=== PATIENT | female | born 1995 | race Caucasian/White ===

== ENCOUNTER 2016-10-14 20:32 | Inpatient (IN) | payer MEDICAID, OTHER ==
[2016-10-14] VITALS (7 sets, daily range): BP systolic 108–135; BP diastolic 57–78
[~2016-10-14] VITALS: Ht 160 cm; Wt 86.3 kg
[~2016-10-14 20:32] MED LIST: D5 LR IV SOLUTION 1,000 ML IV ONE
[2016-10-14] MEDS ORDERED: MISOPROSTOL 100 MCG (CYTOTEC) TAB PO ONE (20:45)
[2016-10-14] MEDS ORDERED: MINERAL OIL CONCENTRATE 99.9% 15 ML UDC TOP PRN (20:45)
[2016-10-14] MEDS ORDERED: ONDANSETRON 4 MG/2 ML (SDV) Z0FRAN IVP PRN (20:45)
[2016-10-14] MEDS: LACTATED RINGERS 500 ML IV SCH ×2 (21:05→22:00)
[2016-10-14 21:07] LABS: BASOPHILS % (AUTO) 0 % (0-10); EOSINOPHILS % (AUTO) 0 % (0-10); LYMPHOCYTES # (AUTO) 2.2 X 10^3 (1.0-4.0); LYMPHOCYTES % (AUTO) 18 % (12-44); MEAN CORPUSCULAR HEMOGLOBIN 31 PG (25-34); MEAN CORPUSCULAR HGB CONC 32 G/DL (32-36); MEAN CORPUSCULAR VOLUME 95 FL (80-99); MEAN PLATELET VOLUME 10.6 FL (7.4-10.4); MONOCYTES # (AUTO) 0.6 X 10^3 (0.0-1.0); MONOCYTES % (AUTO) 5 % (0-12); NEUTROPHILS # (AUTO) 9.3 X 10^3 (1.8-7.8); NEUTROPHILS % (AUTO) 77 % (42-75); PLATELET COUNT 164 10^3/uL (130-400); RED BLOOD COUNT 3.72 10^6/uL (4.35-5.85); WHITE BLOOD COUNT 12.1 10^3/uL (4.3-11.0)
[2016-10-14 21:10] LABS: BILIRUBIN,URINE NEGATIVE (NEGATIVE); KETONES,URINE 3+ (NEGATIVE); LEUKOCYTE ESTERASE ,URINE 2+ (NEGATIVE); NITRITE,URINE NEGATIVE (NEGATIVE); PH,URINE 6 (5-9); PROTEIN,URINE 1+ (NEGATIVE); UROBILINOGEN,URINE NORMAL (NORMAL)
[2016-10-14 21:21] LABS: SQUAMOUS EPITHELIAL CELL,UR >50 /HPF; WBC,URINE 25-50 /HPF
[2016-10-14] MEDS: D5 LR IV SOLUTION 1,000 ML IV SCH (21:33)
[2016-10-14] MEDS ORDERED: CATHETER FLUSH 10 ML SYR IV SCH (22:00)
[2016-10-15] VITALS (43 sets, daily range): BP systolic 94–148; BP diastolic 46–79
[2016-10-15] MEDS ORDERED: HYDROmorphone (DILAUDID) 2 MG/ML VIAL ONE (01:34)
[2016-10-15] MEDS: MISOPROSTOL 100 MCG (CYTOTEC) TAB PO SCH ×2 (01:41→04:45)
[2016-10-15] MEDS ORDERED: HYDROmorphone (DILAUDID) 2 MG/ML VIAL IVP PRN (01:45)
[2016-10-15] MEDS ORDERED: LACTATED RINGERS 500 ML IV ONE (02:50)
[2016-10-15] MEDS ORDERED: SUFENTA 0.6MCG/ML BUPIVA 0.125 100 ML ONE (04:09)
[2016-10-15] MEDS: D5 LR IV SOLUTION 1,000 ML IV SCH (04:31)
[2016-10-15] MEDS ORDERED: fentaNYL INJECTION 100 MCG/2 ML AMP ONE (04:59)
[2016-10-15] MEDS ORDERED: CLINDAMYCIN 900 MG/50 ML IVPB 50 ML IV ONE (06:00)
--- NOTE | 2016-10-15 06:59 | History & Physical-OB ---
OB - Chief Complaint & HPI Date Date of Admission: Date of Admission: Oct 14, 2016 at 8:32 pm Chief Complaint/History OB-Reason for Admission/Chief: Induction of Labor Hx : 4 Hx Para: 1 Expected Date of Delivery: Oct 22, 2016 Gestational Age in Weeks: 38 Indication for induction: other (Elective/social >39 weeks) Admission Nurse Assessment Rev: Yes History of Labs A neg Antibody neg RI RPR NR HBsAg NR HIV NR GC neg GBS pos Allergies and Home Medications Allergies Coded Allergies: acetaminophen (Verified Allergy, Severe, ANAPHYLAXIS, 10/14/16) hydrocodone (Verified Allergy, Severe, ANAPHYLAXIS, 10/14/16) Penicillins (Verified Allergy, Intermediate, HIVES, 10/14/16) OB - History Hx of Present Care: Yes Ultrasounds: Normal mid trimester US Obstetrical Complications: None Medical Complications: None Delivery History Adverse Rxn to Tranfusion: No Patient Past Medical History none Social History/Family History Recent Infectious Disease Expo: No Sexually Transmitted Disease: Yes (hpv on pap) Alcohol Use: Denies Use Recreational Drug Use: No Immunizations Date of Influenza Vaccine: Apr 30, 2016 OB - Admission Exam Physical Exam Vitals: Vital Signs 10/15/16 10/15/16 05:30 06:10 Temp 98.4 Pulse 86 Resp 16 B/P (MAP) 96/50 Pulse Ox 97 O2 Delivery Room Air HEENT: NCAT Heart: Rhythm Normal Lungs: Clear Abdomen: Gravid Extremities: Normal Reflexes: Normal Cervical Dilatation: 2cm Effacement: 75% Station: -1 Membranes: Intact Heart Rate: 130's Accelerations: Accelerations Present Decelerations: No Decelerations Short Term Variability: Present Sewer And Inspector Variability: Average (6-25) Contractions on Admission: 6-10 Minutes Apart Intensity: Mild Truong Scoring Tool (Modified) Dilation (cm): 3-4cm (2) Effacement (%): 51-79% (2) Descent/Station: -1,0 (2) Cervix Consistency: Soft (2) Cervix Position: Anterior (2) Add 1 point for: Each previous vaginal delivery (1) Truong Score: 11 Labs Laboratory Tests Test 10/14/16 20:00 10/14/16 20:15 Range/Units Urine Color YELLOW Urine Clarity VERY CLOUDY H Urine pH 6 5-9 Urine Specific [place] 1.020 1.016-1.022 Urine Protein 1+ H NEGATIVE Urine Glucose (UA) 2+ H NEGATIVE Urine Ketones 3+ H NEGATIVE Urine Nitrite NEGATIVE NEGATIVE Urine Bilirubin NEGATIVE NEGATIVE Urine Urobilinogen NORMAL NORMAL MG/DL Urine Leukocyte Esterase 2+ H NEGATIVE Urine RBC (Auto) NEGATIVE NEGATIVE Urine RBC NONE /HPF Urine WBC 25-50 H /HPF Urine Squamous Epithelial Cells >50 H /HPF Urine Crystals NONE /LPF Urine Bacteria LARGE H /HPF Urine Casts NONE /LPF Urine Mucus NEGATIVE /LPF Urine Culture Indicated YES White Blood Count 12.1 H 4.3-11.0 10^3/uL Red Blood Count 3.72 L 4.35-5.85 10^6/uL Hemoglobin 11.4 L 11.5-16.0 G/DL Hematocrit 36 35-52 % Mean Corpuscular Volume 95 80-99 FL Mean Corpuscular Hemoglobin 31 25-34 PG Mean Corpuscular Hemoglobin Concent 32 32-36 G/DL Red Cell Distribution Width 14.0 10.0-14.5 % Platelet Count 164 130-400 10^3/uL Mean Platelet Volume 10.6 H 7.4-10.4 FL Neutrophils (%) (Auto) 77 H 42-75 % Lymphocytes (%) (Auto) 18 12-44 % Monocytes (%) (Auto) 5 0-12 % Eosinophils (%) (Auto) 0 0-10 % Basophils (%) (Auto) 0 0-10 % Neutrophils # (Auto) 9.3 H 1.8-7.8 X 10^3 Lymphocytes # (Auto) 2.2 1.0-4.0 X 10^3 Monocytes # (Auto) 0.6 0.0-1.0 X 10^3 Eosinophils # (Auto) 0.0 0.0-0.3 10^3/uL Basophils # (Auto) 0.0 0.0-0.1 10^3/uL OB - Assessment/Plan/Diagnosis Assessment Assessment: induction of labor Plan Plan: Induction Induction Method: per Misoprostol Protocol Discharge Diagnosis Diagnosis: 21 yo @ 39 weeks GBS + VENKATESHSHERRI Horton Oct 15, 2016 6:59 am
[2016-10-15] MEDS ORDERED: OXYTOCIN/NORMAL SALINE 500 ML IV ONE (07:23)
[2016-10-15] MEDS ORDERED: LIDOCAINE/EPI 1%-1:200,000 (XYLOCAINE) 30 ML VIAL ONE (07:23)
[2016-10-15] MEDS ORDERED: LIDOCAINE/EPI 1%-1:200,000 (XYLOCAINE) 30 ML VIAL INJ ONE (08:10)
[2016-10-15] MEDS ORDERED: OXYTOCIN/NORMAL SALINE 500 ML IV SCH (08:36)
--- NOTE | 2016-10-15 08:41 | OB Labor & Delivery Record ---
L&D History Date of Service Date of Service: Oct 15, 2016 History Expected Date of Delivery: Oct 22, 2016 Gestational Age in Weeks: 38 Hx : 4 Hx Para: 1 Complications Events: Routine care Operative Indications (Cesarea: N/A-Vaginal Delivery Intrapartal Events: None L&D Stage1 Stage One Onset of Labor - Date: Oct 15, 2016 Monitors and Tracing Monitor Mode: External Heart Rate: 145 Monitor Accelerations: Uniform Monitor Decelerations: None Station: -1 Engineering And Scientific Programmer Variability: Moderate (11-25) Short Term Variability: Present Presentation: Vertex Vital Signs VS - Last 72 Hours, by Label 10/14/16 10/14/16 10/14/16 10/14/16 20:12 20:30 21:00 21:30 Temp 98.4 Pulse 127 103 117 113 Resp 18 18 18 18 B/P (MAP) 135/73 130/78 119/57 126/64 O2 Delivery Room Air Room Air Room Air Room Air 10/14/16 10/14/16 10/14/16 10/14/16 22:00 22:30 22:45 23:15 Pulse 77 97 Resp 18 18 18 18 B/P (MAP) 108/59 115/60 O2 Delivery Room Air Room Air Room Air Room Air 10/14/16 10/15/16 10/15/16 10/15/16 23:45 00:15 00:45 01:15 Temp 99.0 Pulse 90 96 91 81 Resp 18 16 16 16 B/P (MAP) 120/60 100/51 94/58 97/53 O2 Delivery Room Air Room Air Room Air Room Air 10/15/16 10/15/16 10/15/16 10/15/16 01:45 02:15 02:45 03:20 Temp 99.2 Pulse 87 86 75 75 Resp 16 16 16 16 B/P (MAP) 118/72 118/56 102/58 99/55 O2 Delivery Room Air Room Air Room Air Room Air 10/15/16 10/15/16 10/15/16 10/15/16 04:00 04:20 04:50 05:06 Temp 97.4 Pulse 85 83 90 92 Resp 18 18 18 18 B/P (MAP) 108/57 117/68 123/73 132/69 Pulse Ox 100 O2 Delivery Room Air Room Air Room Air Room Air 10/15/16 10/15/16 10/15/16 10/15/16 05:14 05:20 05:22 05:24 Pulse 104 98 85 108 Resp 18 18 20 20 B/P (MAP) 138/78 133/78 130/73 131/75 Pulse Ox 100 97 94 94 O2 Delivery Room Air Room Air Room Air Room Air 10/15/16 10/15/16 10/15/16 10/15/16 05:27 05:30 05:33 05:36 Temp 98.4 Pulse 97 116 108 121 Resp 18 18 18 18 B/P (MAP) 113/57 112/56 102/56 105/57 Pulse Ox 97 97 97 98 O2 Delivery Room Air Room Air Room Air Room Air 10/15/16 10/15/16 10/15/16 10/15/16 05:39 05:42 05:45 05:50 Pulse 90 85 92 94 Resp 18 16 16 16 B/P (MAP) 122/58 120/59 113/57 96/52 Pulse Ox 96 95 99 99 O2 Delivery Room Air Room Air Room Air Room Air 10/15/16 10/15/16 10/15/16 10/15/16 05:55 06:10 06:25 06:40 Pulse 77 86 81 76 Resp 16 16 16 16 B/P (MAP) 96/54 96/50 95/46 102/50 Pulse Ox 99 97 99 97 O2 Delivery Room Air Room Air Room Air Room Air 10/15/16 10/15/16 06:55 07:10 Pulse 108 85 Resp 16 16 B/P (MAP) 99/61 112/58 Pulse Ox 100 97 O2 Delivery Room Air Room Air Rupture of Membranes Spontaneous Ruture of Membrane: No Amniotic Membrane Rupture Time: 08:00 Amniotic Membrane Fluid Desc.: Clear Vaginal Bleeding Description: Normal Show Induction/Anesthesia Epidural Cath Placement - Time: 517 Progress/Notes Patient induced using cytotec and recieved 2 oral doses before active labor was achieved and epidural was obtained. She rapidly progressed to complete and +1 station intact, when AROM was performed. L&D Stage2 Stage Two Stage II Date: Oct 15, 2016 Monitors and Tracing Monitor Mode: External Heart Rate: 145 Monitor Accelerations: Uniform Monitor Decelerations: Early Engineering And Scientific Programmer Variability: Moderate (11-25) Short Term Variability: Present Position: Right Occiput Anterior Presentation: Vertex Cord Descript/Complications Cord Vessel Description: 3 Vessels Complications nuchal cord x 2 Delivery Type Delivery Method: Spontaneous Vaginal Anterior Shoulder: Left Episiotomy/Perineal Laceration Laceraction(s)/Extensions: Yes Episiotomy Description: Midline, Perineal Extension/lac, 1st degree Degree (describe repair) midline 1st degree laceration repaired using 3-0 rapide vicryl Condition of Delivery 1 minute Comment: 8 5 minute Comment: 9 Condition of Infant Condition of Infant: Living Exam: No Observed Abnormalities Live female infant weight 8lbs 8oz Resuscitation Resuscitation: N/A - Spontaneous Resp L&D Stage3 Stage Three Stage III Date: Oct 15, 2016 Pictocin Pitocin Administration Comment: 30 mu wide open after delivery of placenta Placenta Delivery Placenta Delivery: Spontaneous Delivery Summary Summary Total Labor Time 8 hrs blood loss >1000ml: No Vaginal blood loss >500ml: No 300 Attending at delivery: Sherri Riddle DO Condition of Delivery Examined: Cervix Examined, Uterus Explored Post Hemorrhage: No Condition of Mother stable Condition of Infant (s) stable SHERRI RIDDLE DO Oct 15, 2016 08:41
[2016-10-15] MEDS ORDERED: BENZOCAINE/MENTHOL (DERMOPLAST) 56 ML CAN TP PRN (08:45)
[2016-10-15] MEDS ORDERED: TETANUS,DIPTH,PERTUSS P/F (BOOSTRIX) 0.5 ML VIAL IM ONE (08:45)
[2016-10-15] MEDS ORDERED: WITCH HAZEL(TUCKS) 40 EA JAR TOP PRN (08:45)
[2016-10-15] MEDS ORDERED: MEASLES,MUMPS,RUBELLA 1 EA INJ SQ ONE (08:45)
[2016-10-15] MEDS ORDERED: DIBUCAINE (NUPERCAINAL) 1% OINT 30 GM TOP PRN (08:45)
[2016-10-15] MEDS: IBUPROFEN 600 MG (MOTRIN) TAB PO SCH ×3 (08:50→20:58)
[2016-10-15] MEDS: DOCUSATE SODIUM 100 MG (COLACE) CAP PO SCH ×2 (09:00→20:58)
[2016-10-15] MEDS ORDERED: CLINDAMYCIN 600 MG/50 ML IVPB 50 ML IV SCH (09:45)
[2016-10-15] MEDS ORDERED: CATHETER FLUSH 10 ML SYR IV SCH (14:00)
[2016-10-15] MEDS: oxyCODONE/APAP 10/325MG (PERCOCET 10) TABLET PO PRN (23:37)
[2016-10-16] VITALS (7 sets, daily range): BP systolic 101–123; BP diastolic 56–75
[2016-10-16] MEDS: IBUPROFEN 600 MG (MOTRIN) TAB PO SCH ×4 (03:13→18:15)
[2016-10-16 06:36] LABS: BASOPHILS % (AUTO) 0 % (0-10); EOSINOPHILS # (AUTO) 0.1 10^3/uL (0.0-0.3); EOSINOPHILS % (AUTO) 1 % (0-10); LYMPHOCYTES # (AUTO) 3.2 X 10^3 (1.0-4.0); LYMPHOCYTES % (AUTO) 32 % (12-44); MEAN CORPUSCULAR HEMOGLOBIN 30 PG (25-34); MEAN CORPUSCULAR HGB CONC 31 G/DL (32-36); MEAN CORPUSCULAR VOLUME 97 FL (80-99); MEAN PLATELET VOLUME 10.3 FL (7.4-10.4); MONOCYTES # (AUTO) 0.8 X 10^3 (0.0-1.0); MONOCYTES % (AUTO) 8 % (0-12); NEUTROPHILS # (AUTO) 5.7 X 10^3 (1.8-7.8); NEUTROPHILS % (AUTO) 59 % (42-75); PLATELET COUNT 158 10^3/uL (130-400); RED BLOOD COUNT 2.88 10^6/uL (4.35-5.85); RED CELL DISTRIBUTION WIDTH 13.9 % (10.0-14.5); WHITE BLOOD COUNT 9.8 10^3/uL (4.3-11.0)
[2016-10-16] MEDS ORDERED: FERR-74 PO (08:36)
[2016-10-16] MEDS ORDERED: OXYC-465 PO (08:36)
[2016-10-16] MEDS ORDERED: BENZ56AE2 TP (08:36)
[2016-10-16] MEDS ORDERED: IBUP-1773 PO (08:36)
[2016-10-16] MEDS ORDERED: DOCU100C37 PO (08:36)
[2016-10-16] MEDS ORDERED: FERROUS SULF 325 MG (IRON) TAB PO ONE (08:45)
[2016-10-16] MEDS: FERROUS SULF 325 MG (IRON) TAB PO SCH ×2 (08:48→17:00)
[2016-10-16] MEDS: DOCUSATE SODIUM 100 MG (COLACE) CAP PO SCH ×2 (08:48→19:55)
--- NOTE | 2016-10-16 10:13 | Progress Note-Standard ---
Standard Progress Note Progress Notes/Assess & Plan Progress/Assessment & Plan Patient reports feeling slightly lightheaded when ambulating last night, but otherwise is doing well. Lochia moderate. Pain well controlled. Vital Sign - Last 24 Hours 10/15/16 10/15/16 10/15/16 10/16/16 11:55 16:29 20:00 00:00 Temp 96.6 96.4 98.2 97.6 Pulse 82 75 84 75 Resp 16 16 16 16 B/P (MAP) 105/61 113/65 121/61 106/56 Pulse Ox 97 98 100 O2 Delivery Room Air Room Air Room Air Room Air 10/16/16 10/16/16 04:00 08:45 Temp 98.1 97.5 Pulse 90 83 Resp 16 18 B/P (MAP) 101/64 119/60 Pulse Ox 99 100 O2 Delivery Room Air Room Air Intake and Output 10/15/16 10/15/16 10/16/16 15:00 23:00 07:00 Intake Total 1100 ml Output Total 250 ml Balance 850 ml Laboratory Tests Test 10/16/16 06:00 Range/Units White Blood Count 9.8 4.3-11.0 10^3/uL Red Blood Count 2.88 L 4.35-5.85 10^6/uL Hemoglobin 8.7 #L 11.5-16.0 G/DL Hematocrit 28 L 35-52 % Mean Corpuscular Volume 97 80-99 FL Mean Corpuscular Hemoglobin 30 25-34 PG Mean Corpuscular Hemoglobin Concent 31 L 32-36 G/DL Red Cell Distribution Width 13.9 10.0-14.5 % Platelet Count 158 130-400 10^3/uL Mean Platelet Volume 10.3 7.4-10.4 FL Neutrophils (%) (Auto) 59 42-75 % Lymphocytes (%) (Auto) 32 12-44 % Monocytes (%) (Auto) 8 0-12 % Eosinophils (%) (Auto) 1 0-10 % Basophils (%) (Auto) 0 0-10 % Neutrophils # (Auto) 5.7 1.8-7.8 X 10^3 Lymphocytes # (Auto) 3.2 1.0-4.0 X 10^3 Monocytes # (Auto) 0.8 0.0-1.0 X 10^3 Eosinophils # (Auto) 0.1 0.0-0.3 10^3/uL Basophils # (Auto) 0.0 0.0-0.1 10^3/uL Uterine fundus firm and palpated below umbilicus Diagnosis: PPD1 NVD Acute blood loss anemia P: Started patient on iron today bid with meal continue routine pp care SHERRI RIDDLE DO Oct 16, 2016 10:13 am
[2016-10-16] MEDS: oxyCODONE/APAP 10/325MG (PERCOCET 10) TABLET PO PRN ×2 (10:14→19:54)
--- NOTE | 2016-10-16 10:16 | Discharge Inst-Women's Service ---
Discharge Inst-Women's Serv Depart Medication/Instructions New, Converted or Re-Newed RX: RX on Chart Consults/Follow Up Additional Follow Up: Yes Orders/Referrals Dr. Riddle in 6 weeks Activity Activity: Activity as Tolerated Driving Instructions: No Driving for 1 Week NO SMOKING: NO SMOKING Nothing Inside Vagina: No Douching, No [place], No Tampons Diet Discharge Diet: No Restrictions Symptoms to Report to : Bleeding Excessive, Pain Increased, Fever Over 101 Degrees F, Vaginal Bleeding Increase, Questions/Concerns For Any Problems or Questions: Contact Your Physician Skin/Wound Care Bathing Instructions: Shower ( x 2 weeks) SHERRI RIDDLE DO Oct 16, 2016 10:16 am
[2016-10-16] MEDS ORDERED: ONDANSETRON 4 MG (ZOFRAN) ORAL DISSOLVE TAB ONE (10:36)
[2016-10-16] MEDS ORDERED: ONDANSETRON 4 MG (ZOFRAN) ORAL DISSOLVE TAB PO PRN (10:45)
--- NOTE | 2016-10-16 13:36 | Anesthesia-Regional Post-Op ---
Regional Patient Condition Mental Status: Alert, Oriented x3 Circulation: Same as Pre-Op Headache: Absent Sensation: Full Recovery Motor Block: Absent Post Op Complications Complications None Follow Up Care/Instructions Patient Instructions None needed. Anesthesia/Patient Condition Patient is doing well, no complaints, stable vital signs, no apparent adverse anesthesia problems. No complications reported per nursing. MAHOGANY HI CRNA Oct 16, 2016 13:36
--- NOTE | 2016-10-16 19:45 | Diagnostic Imaging Report ---
PROCEDURE: US right lower extremity venous. TECHNIQUE: Multiple real-time grayscale images were obtained over the right lower extremity in various projections. Additional duplex Doppler and color Doppler images were also obtained. INDICATION: Right leg pain. FINDINGS: The veins are compressible and have normal spontaneous and augmented flow. IMPRESSION: Negative venous Doppler of the right leg. Dictated by: Dictated on workstation # [id number]
[2016-10-17] MEDS: IBUPROFEN 600 MG (MOTRIN) TAB PO SCH ×3 (00:03→12:31)
--- NOTE | 2016-10-17 07:52 | Progress Note-Standard ---
Standard Progress Note Progress Notes/Assess & Plan Progress/Assessment & Plan Patient reports feeling like she is doing well. Lochia moderate. Pain well controlled. Vital Sign - Last 24 Hours 10/16/16 10/16/16 10/16/16 10/16/16 08:45 12:02 18:18 19:35 Temp 97.5 96.5 95.1 97.0 Pulse 83 80 82 95 Resp 18 18 18 18 B/P (MAP) 119/60 116/75 123/72 123/69 Pulse Ox 100 99 99 97 O2 Delivery Room Air Room Air 10/16/16 23:25 Temp 98.0 Pulse 77 Resp 18 B/P (MAP) 112/65 Pulse Ox 97 O2 Delivery Room Air Uterine fundus firm and palpated below umbilicus Diagnosis: PPD2 NVD Acute blood loss anemia P: Started patient on iron today bid with meal switched to niferex continue routine pp care, dc today SHERRI RIDDLE DO Oct 17, 2016 7:52 am
[2016-10-17] MEDS: DOCUSATE SODIUM 100 MG (COLACE) CAP PO SCH (08:39)
[2016-10-17] MEDS: oxyCODONE/APAP 10/325MG (PERCOCET 10) TABLET PO PRN ×2 (08:40→13:45)
[2016-10-17 09:00] VITALS: BP 114/64
[2016-10-17] MEDS ORDERED: IRON POLYSAC 150 MG CAP (NIFEREX) PO ONE (09:05)
[2016-10-17 12:30] VITALS: BP 113/67
[2016-10-17] MEDS ORDERED: IRON150C3 PO (13:17)
[2016-10-17 13:30] VITALS: BP 113/67
[2016-10-17] MEDS ORDERED: IRON POLYSAC 150 MG CAP (NIFEREX) PO SCH (17:00)
== END 2016-10-17 14:50 | disposition home or self-care (01) | DRG 775 ==
LOC: LDRP 20:32
PROVIDERS: ADMIT Obstetrics & Gynecology; ATTEND Obstetrics & Gynecology
PROC: 10E0XZZ Delivery of Products of Conception, External Approach (ICD-10-PCS; principal; 2016-10-15)
PROC: 0HQ9XZZ Repair Perineum Skin, External Approach (ICD-10-PCS; 2016-10-15)
DX: O26.893 Other specified pregnancy related conditions, third trimester (principal); O99.820 Streptococcus B carrier state complicating pregnancy; O70.0 First degree perineal laceration during delivery; O99.03 Anemia complicating the puerperium; D64.9 Anemia, unspecified; Z3A.39 39 weeks gestation of pregnancy; Z37.0 Single live birth
CPT/HCPCS: 36415; 81000; 83033; 85025; 86850; 86900; 86901; 87088

== ENCOUNTER 2020-01-27 06:11 | Day surgery (SDC) | payer MEDICAID ==
[~2020-01-27] VITALS: Ht 160 cm; Wt 80.9 kg
[2020-01-27] VITALS (9 sets, daily range): BP systolic 104–124; BP diastolic 55–80
[~2020-01-27 06:11] MED LIST changes: +BENZ56AE2 TP; -D5 LR IV SOLUTION 1,000 ML IV ONE; +DOCU100C37 PO; +FERR325T18 PO; +IBUP-1773 PO; +IRON150C3 PO; +OXYC-465 PO
[2020-01-27] MEDS ORDERED: LACTATED RINGERS 1,000 ML IV PRN ×2 (06:20→07:15)
[2020-01-27] MEDS ORDERED: ONDANSETRON 4 MG/2 ML (SDV) Z0FRAN ONE ×2 (06:43→06:49)
[2020-01-27] MEDS ORDERED: MIDAZOLAM 2 MG/2 ML (VERSED) VIAL ONE ×2 (06:43→06:48)
[2020-01-27] MEDS ORDERED: proPOfol 200 MG/20 ML (DIPRIVAN) VIAL IV ONE (06:49)
[2020-01-27] MEDS ORDERED: fentaNYL INJECTION 100 MCG/2 ML AMP ONE (06:49)
[2020-01-27] MEDS ORDERED: LIDOCAINE PF 2% 5 ML (XYLOCAINE) VIAL ONE (06:49)
[2020-01-27 06:51] LABS: BASOPHILS % (AUTO) 0 % (0-10); EOSINOPHILS # (AUTO) 0.1 10^3/uL (0.0-0.3); EOSINOPHILS % (AUTO) 1 % (0-10); HEMATOCRIT 40 % (35-52); HEMOGLOBIN 13.5 G/DL (11.5-16.0); LYMPHOCYTES # (AUTO) 1.8 X 10^3 (1.0-4.0); LYMPHOCYTES % (AUTO) 24 % (12-44); MEAN CORPUSCULAR HEMOGLOBIN 31 PG (25-34); MEAN CORPUSCULAR HGB CONC 34 G/DL (32-36); MEAN CORPUSCULAR VOLUME 93 FL (80-99); MEAN PLATELET VOLUME 9.7 FL (7.4-10.4); MONOCYTES # (AUTO) 0.6 X 10^3 (0.0-1.0); MONOCYTES % (AUTO) 8 % (0-12); NEUTROPHILS # (AUTO) 5.1 X 10^3 (1.8-7.8); NEUTROPHILS % (AUTO) 67 % (42-75); PLATELET COUNT 193 10^3/uL (130-400); RED CELL DISTRIBUTION WIDTH 12.8 % (10.0-14.5); WHITE BLOOD COUNT 7.5 10^3/uL (4.3-11.0)
[2020-01-27] MEDS ORDERED: OXYC-200 PO (07:05)
[2020-01-27] MEDS ORDERED: IBUP-1773 PO (07:05)
--- NOTE | 2020-01-27 07:06 | Discharge Inst-Women's Service ---
Discharge Inst-Women's Serv Depart Medication/Instructions New, Converted or Re-Newed RX: RX on Chart Problems Reviewed?: Yes Consults/Follow Up Additional Follow Up: Yes Orders/Referrals Dr. Riddle in 7-10 days Activity Activity: Activity as Tolerated Driving Instructions: You May Drive NO SMOKING: NO SMOKING Nothing Inside Vagina: No Douching, No Cactus, No Tampons Diet Discharge Diet: No Restrictions Symptoms to Report to : Bleeding Excessive, Pain Increased, Fever Over 101 Degrees F, Vaginal Bleeding Increase, Questions/Concerns SHERRI RIDDLE DO Jan 27, 2020 07:06
[2020-01-27] MEDS ORDERED: D5 LR IV SOLUTION 1,000 ML IV SCH (07:08)
[2020-01-27] MEDS ORDERED: KETOROLAC 30 MG/ML VIAL IVP ONE (07:15)
[2020-01-27] MEDS ORDERED: ONDANSETRON 4 MG/2 ML (SDV) Z0FRAN IV ONE (07:15)
[2020-01-27] MEDS ORDERED: ONDANSETRON 4 MG/2 ML (SDV) Z0FRAN IVP PRN (07:15)
[2020-01-27] MEDS ORDERED: MIDAZOLAM 2 MG/2 ML (VERSED) VIAL IV ONE (07:15)
[2020-01-27] MEDS ORDERED: DEXAMETHASONE 10 MG/ML (DECADRON) 1 ML VIAL ONE (07:32)
[2020-01-27] MEDS ORDERED: SEVOFLURANE (ULTANE) 15 ML INHAL SOLN ONE (07:32)
[2020-01-27] MEDS ORDERED: KETOROLAC 30 MG/ML VIAL ONE (08:03)
--- NOTE | 2020-01-27 08:46 | Anesthesia-General Post-Op ---
General Patient Condition Mental Status/LOC: Same as Preop Cardiovascular: Satisfactory Nausea/Vomiting: Absent Respiratory: Satisfactory Pain: Controlled Complications: Absent Post Op Complications Complications None Follow Up Care/Instructions Patient Instructions None needed. Anesthesia/Patient Condition Patient Condition Patient is doing well, no complaints, stable vital signs, no apparent adverse anesthesia problems. No complications reported per nursing. GINNY PETERSON CRNA Jan 27, 2020 08:46
--- NOTE | 2020-01-27 09:13 | OPERATIVE REPORT ---
DATE OF SERVICE: PREOPERATIVE DIAGNOSIS: A 24-year-old female with missed AB approximately 6 weeks gestation. POSTOPERATIVE DIAGNOSIS: A 24-year-old female with missed AB approximately 6 weeks gestation. PROCEDURE: Suction D and C. SURGEON: Nilo Morley DO ANESTHESIA: LMA general. ESTIMATED BLOOD LOSS: 200 mL. URINE OUTPUT: 50 mL clear at the end of procedure. FLUIDS: 500 mL lactated Ringer's solution. FINDINGS: A grossly normal external female genitalia with a moderate amount of products of conception. SPECIMEN SENT: Products of conception. INDICATIONS FOR PROCEDURE: This 24-year-old female is a patient who had sought care in my office. Her initial ultrasound revealed a gestational sac with a small pole measuring approximately 5 to 6 weeks in gestational size. There was irregular elevation in her beta hCG level; therefore, followup ultrasound done in 2 weeks. There was no cardiac activity noted at that point and no change in the size. Due to this finding as well as the hCG levels not raising appropriately, I did diagnose the patient with a missed AB. I discussed with the patient spontaneous miscarriage at home versus proceeding with suction D and C. Risks of procedure were discussed with the patient in detail including risk of bleeding and postoperative recovery timeframe. Due to a traumatic experience in the past, the patient wished to proceed with suction D and C. Consent was obtained in the preoperative area after all of her questions were answered and the patient was taken to the operating room. OPERATIVE REPORT IN DETAIL: Once in the operating room, anesthesia was found to be adequate, placed in dorsal lithotomy position, prepped and draped in normal sterile fashion. Straight catheterization was used to drain the bladder. A weighted speculum was inserted to the patient's vagina. Right angle retractor was used to visualize the cervix, which was grasped at 12 oclock position using a long Allis clamp. I then gently dilated the cervix using Hanks dilators and sound the uterine cavity depth to approximately 7 cm. I selected a 7 cm rigid suction curette and advanced it into the endometrial cavity. I applied [place] suction up to a suction pressure of 70 mmHg. I then methodically cleared the endometrial cavity of all products of conception on several different passes by rotating the suction device. Once this was felt to be complete, I performed a gentle curettage of the endometrial cavity. There was no heavy active bleeding noted at that point, I removed all other instruments from the patient's vagina. The patient tolerated the procedure well and sent to recovery in stable condition. Lap and sponge counts were correct at the end of the procedure. Instrument counts correct as well. Job ID: [id number] DocumentID: [id number] Dictated Date: 01/27/2020 08:44:23 Pulp Grinder And Blender Date: 01/27/2020 09:12:49 Dictated By: DO CLAUDE BOUCHER
== END 2020-01-27 09:35 | disposition home or self-care (01) ==
LOC: SDC 06:11
PROVIDERS: ATTEND Obstetrics & Gynecology
DX: O02.1 Missed abortion (principal); Z88.0 Allergy status to penicillin; Z88.5 Allergy status to narcotic agent; Z20.828 Contact with and (suspected) exposure to other viral communicable diseases; Z80.3 Family history of malignant neoplasm of breast; Z80.1 Family history of malignant neoplasm of trachea, bronchus and lung; Z80.41 Family history of malignant neoplasm of ovary
CPT/HCPCS: 59820; 85025; 86850; 86900; 86901; 87081; 88305; U0002; 36415; 87635

== ENCOUNTER → 2020-08-30 | Outpatient (CLI) | payer MEDICAID ==
[~2020-08-30] MED LIST changes: +OXYC-200 PO; -OXYC-465 PO; +OXYC-556 PO
--- NOTE | 2020-08-30 16:03 | Diagnostic Imaging Report ---
INDICATION: survey. TECHNIQUE: Multiple real-time grayscale images were obtained over the gravid uterus. COMPARISON: None FINDINGS: There are no prior studies available for comparison. There is a single live fetus in transverse presentation with the head to maternal left. heart motion was noted and a rate of 139 BPM was recorded. The four-chamber heart view was less than optimal. There is no abnormality identified but it may prove worthwhile to have a short-term (4-6 week) follow-up exam for further study. There is no abnormality identified otherwise. The growth parameters are fairly uniform. The placenta is posterior and low-lying. The tip of the placenta is approximately 1.9 cm from the os. The amniotic fluid volume is within normal limits. The cervix was identified and measures 6.3 cm in length Biometrical measurements are as follows: Biparietal 4.50 cm, age 19 weeks 5 days. Head circumference 17.45 cm, age 20 weeks 0 days. Abdominal circumference 14.62 cm, age 20 weeks 0 days. Femur length 3.34 cm, age 20 weeks 4 days. Sonographic estimate age: 20 weeks 1 days. Sonographic estimated date of delivery: 01/16/2021. Estimated Weight: 334 gm (+/- 49 gm). LMP percentile: 53%. heart rate: 139 beats per minute. number: 1 of 1. IMPRESSION: 1. There is a single live fetus approximately 20 weeks 1 day gestation +/- 1.5 weeks. EDC is 01/16/2021. 2. There were no abnormalities identified with certainty. However the four-chamber heart view was less than optimal. Recommendations as above. 3. The growth parameters are fairly uniform. Dictated by: Dictated on workstation # [id number]
== END ==
LOC: RAD 13:45
PROVIDERS: ATTEND Obstetrics & Gynecology
DX: Z34.02 Encounter for supervision of normal first pregnancy, second trimester (principal); Z3A.20 20 weeks gestation of pregnancy
CPT/HCPCS: 76805

== ENCOUNTER 2021-01-12 06:11 | Inpatient (IN) | payer MEDICAID ==
[2021-01-12] VITALS (37 sets, daily range): BP systolic 97–156; BP diastolic 50–111
[~2021-01-12] VITALS: Ht 160 cm; Wt 97.2 kg
[2021-01-12] MEDS ORDERED: MINERAL OIL CONCENTRATE 99.9% 15 ML UDC TOP PRN (07:15)
[2021-01-12] MEDS ORDERED: D5 LR IV SOLUTION 1,000 ML IV SCH (07:15)
--- NOTE | 2021-01-12 07:24 | History & Physical-OB/GYN ---
GARFIELD SOTO MED STUDENT 01/12/21 0724: OB - Chief Complaint & HPI Date/Time Date of Admission: Date of Admission: Jan 12, 2021 at 06:11 Time Seen by a Provider: 07:00 Chief Complaint/History OB-Reason for Admission/Chief: Induction of Labor Hx : 6 Hx Para: 2 Hx Last Menstrual Period: 04/05/2020 Estimated Date of Conception: 01/17/2021 Gestational Age in Weeks: 39 Gestational Age in Days: 3 History of Labs A- Hgb 11.3 DMS 93 GBS neg Allergies and Home Medications Allergies Coded Allergies: hydrocodone (Verified Allergy, Severe, ANAPHYLAXIS, 01/12/21) Penicillins (Verified Allergy, Intermediate, HIVES, 01/12/21) Home Medications Ibuprofen 600 Mg Tablet, 600 MG PO Q6H Prescribed by: SHERRI RIDDLE on 01/27/20 07 Oxycodone HCl/Acetaminophen 1 Each Tablet, 1 TAB PO Q4H PRN for PAIN-MODERATE Prescribed by: SHERRI RIDDLE on 01/27/20 07 Patient Home Medication List Home Medication List Reviewed: Yes OB - History Hx of Present Care: Yes Ultrasounds: Normal mid trimester US Obstetrical Complications: None Medical Complications: None Obstetrical History Hx : 6 Hx Para: 2 Hx # Term Pregnancies: 2 Hx # Pregnancies: 0 Number of Living Children: 2 Hx Termination: No Hx Total # of Abortions (Spona: 3 Delivery History Adverse Rxn to Tranfusion: No Patient Past Medical History N/A Surgical hx: D&C January 2020 Social History/Family History Alcohol Use: Denies Use Recreational Drug Use: No 2nd Hand Smoke Exposure: No Immunizations Tetanus Booster (TDap): Less than 5yrs Date of Influenza Vaccine: Apr 30, 2016 OB - Admission Exam Physical Exam HEENT: NCAT Heart: Rhythm Normal Lungs: Clear Abdomen: Gravid Extremities: Edema Heart Rate: 130's Accelerations: Accelerations Present Decelerations: No Decelerations Wood Carver Variability: Average (6-25) OB - Assessment/Plan/Diagnosis Assessment Assessment: induction of labor Admission Dx 25 year old at 39 weeks 3 days gestation GBS pos IOL Admission Status: Inpatient Order (span 2 midnights) Reason for Inpatient Admission: IOL Plan Plan: Expectant Management Induction Method: per Pitocin Protocol Supervisory-Addendum Brief Verification & Attestation Participated in pt care: history, physical Personally performed: exam, history Care discussed with: Medical Student Procedures: n/a SHERRI RIDDLE DO 01/12/21 0751: OB - Chief Complaint & HPI Date/Time Date seen by a Provider: Jan 12, 2021 Chief Complaint/History Admission Nurse Assessment Rev: Yes Allergies and Home Medications Allergies Coded Allergies: hydrocodone (Verified Allergy, Severe, ANAPHYLAXIS, 01/12/21) Penicillins (Verified Allergy, Intermediate, HIVES, 01/12/21) Home Medications Ibuprofen 600 Mg Tablet, 600 MG PO Q6H Prescribed by: SHERRI RIDDLE on 01/27/20 0705 Oxycodone HCl/Acetaminophen 1 Each Tablet, 1 TAB PO Q4H PRN for PAIN-MODERATE Prescribed by: SHERRI RIDDLE on 01/27/20 07 Supervisory-Addendum Brief Verification & Attestation Results interpretation: Verified all documentation Verification and Attestation of Medical Student E/M Service A medical student performed and documented this service in my presence. I reviewed and verified all information documented by the medical student and made modifications to such information, when appropriate. I personally performed the physical exam and medical decision making. Sherri Riddle, Jan 12, 2021,07:51 GARFIELD SOTO MED STUDENT Jan 12, 2021 07:24 SHERRI RIDDLE DO Jan 12, 2021 07:51
[2021-01-12 07:56] LABS: BASOPHILS % (AUTO) 0 % (0-10); EOSINOPHILS % (AUTO) 0 % (0-10); HEMATOCRIT 32 % (35-52); HEMOGLOBIN 9.8 g/dL (11.5-16.0); LYMPHOCYTES # (AUTO) 2.3 10^3/uL (1.0-4.0); LYMPHOCYTES % (AUTO) 21 % (12-44); MEAN CORPUSCULAR HEMOGLOBIN 28 pg (25-34); MEAN CORPUSCULAR HGB CONC 30 g/dL (32-36); MEAN CORPUSCULAR VOLUME 92 fL (80-99); MEAN PLATELET VOLUME 10.6 fL (9.0-12.2); MONOCYTES # (AUTO) 0.6 10^3/uL (0.0-1.0); MONOCYTES % (AUTO) 6 % (0-12); NEUTROPHILS # (AUTO) 7.7 10^3/uL (1.8-7.8); NEUTROPHILS % (AUTO) 71 % (42-75); PLATELET COUNT 181 10^3/uL (130-400); WHITE BLOOD COUNT 10.7 10^3/uL (4.3-11.0)
[2021-01-12] MEDS ORDERED: LACTATED RINGERS 1,000 ML IV SCH (08:00)
[2021-01-12] MEDS ORDERED: fentaNYL 2 mcg/ml BUPIVA 0.125 100 ML ONE (08:12)
[2021-01-12] MEDS: OXYTOCIN PRE-MIX DRIP 500 ML IV SCH ×2 (08:33→16:19)
[2021-01-12] MEDS ORDERED: LACTATED RINGERS 1,000 ML IV ONE (09:00)
[2021-01-12] MEDS ORDERED: ONDANSETRON 4 MG/2 ML (SDV) Z0FRAN IV PRN (09:00)
[2021-01-12] MEDS ORDERED: NALOXONE 0.4 MG/ML 1 ML (NARCAN) VIAL IV PRN (09:00)
[2021-01-12] MEDS ORDERED: CATHETER FLUSH 10 ML SYR IV PRN (09:00)
[2021-01-12] MEDS ORDERED: diphenhydrAMINE 50 MG/ML INJ (BENADRYL) IV PRN (09:00)
[2021-01-12] MEDS ORDERED: fentaNYL 2 mcg/ml BUPIVA 0.125 100 ML IV SCH (09:00)
[2021-01-12] MEDS ORDERED: BUPIVACAINE 0.25% 30 ML (SENSORCAINE) VIAL ONE (09:01)
[2021-01-12] MEDS ORDERED: fentaNYL INJ 100 MCG/2 ML AMP ONE (09:01)
[2021-01-12] MEDS ORDERED: CATHETER FLUSH 10 ML SYR IV SCH ×3 (14:00→22:00)
[2021-01-12] MEDS ORDERED: LIDOCAINE/EPI 2% 1:200,00 (XYLOCAINE) 20 ML VIAL ONE (15:12)
[2021-01-12] MEDS ORDERED: MEASLES,MUMPS,RUBELLA 1 EA INJ SQ ONE (17:15)
[2021-01-12] MEDS ORDERED: WITCH HAZEL(TUCKS) 40 EA JAR TOP PRN ×2 (17:15→17:30)
[2021-01-12] MEDS ORDERED: OXYTOCIN PRE-MIX DRIP 500 ML IV SCH (17:15)
[2021-01-12] MEDS ORDERED: TETANUS,DIPTH,PERTUSS P/F (BOOSTRIX) 0.5 ML VIAL IM ONE (17:15)
[2021-01-12] MEDS ORDERED: BENZOCAINE/MENTHOL (DERMOPLAST) 56 ML CAN TP PRN ×2 (17:15→17:30)
--- NOTE | 2021-01-12 17:25 | OB Labor & Delivery Record ---
L&D History Date of Service Date of Service: Jan 12, 2021 History Expected Date of Delivery: Jan 17, 2021 Gestational Age in Weeks: 39 Hx : 6 Hx Para: 2 Complications Events: Routine care Operative Indications (Cesarea: N/A-Vaginal Delivery Intrapartal Events: None L&D Stage1 Stage One Onset of Labor - Date: Jan 12, 2021 Monitors and Tracing Monitor Mode: External Heart Rate: 120 Monitor Accelerations: Uniform Monitor Decelerations: None Station: -3 Retirement Variability: Average (6-10) Short Term Variability: Present Presentation: Vertex Vital Signs VS - Last 72 Hours, by Label 01/12/21 01/12/21 01/12/21 01/12/21 07:20 09:05 09:12 09:15 Temp 37.0 Pulse 90 88 106 100 Resp 16 16 B/P (MAP) 145/62 (89) 135/65 (88) 142/70 (94) Pulse Ox 99 100 100 99 O2 Delivery Room Air Room Air Room Air Room Air 01/12/21 01/12/21 01/12/21 01/12/21 09:16 09:24 09:26 09:30 Pulse 98 102 97 91 Resp 16 B/P (MAP) 130/62 (84) 123/78 (93) 121/78 (92) 143/60 (87) Pulse Ox 99 98 99 O2 Delivery Room Air Room Air Room Air 01/12/21 01/12/21 01/12/21 01/12/21 09:33 09:36 10:00 10:15 Temp 36.3 Pulse 90 95 99 B/P (MAP) 124/66 (85) 124/68 (86) 125/63 (83) 143/94 (110) Pulse Ox 99 98 100 O2 Delivery Room Air 01/12/21 01/12/21 01/12/21 01/12/21 10:30 10:45 11:00 11:15 Pulse 77 86 79 Resp 16 16 B/P (MAP) 108/58 (75) 108/58 (75) 118/56 (76) O2 Delivery Room Air Room Air 01/12/21 01/12/21 01/12/21 01/12/21 11:30 11:45 12:00 12:15 Temp 36.3 Pulse 68 69 65 80 B/P (MAP) 118/63 (81) 117/64 (81) 121/61 (81) 118/67 (84) O2 Delivery Room Air Room Air Room Air Room Air 01/12/21 01/12/21 01/12/21 01/12/21 12:30 12:45 13:00 13:15 Pulse 87 87 75 87 Resp 16 16 B/P (MAP) 118/68 (85) 118/68 (85) 121/66 (84) 119/66 (83) O2 Delivery Room Air Room Air Room Air Room Air 01/12/21 01/12/21 01/12/21 01/12/21 13:30 13:45 14:00 14:15 Pulse 71 80 81 95 B/P (MAP) 111/53 (72) 116/61 (79) 126/63 (84) 121/67 (85) O2 Delivery Room Air Room Air Room Air Room Air Rupture of Membranes Spontaneous Ruture of Membrane: Yes Amniotic Membrane Rupture Time: 0755 Amniotic Membrane Fluid Desc.: Clear Vaginal Bleeding Description: Normal Show Induction/Anesthesia Epidural Cath Placement - Time: 0916 Progress/Notes Patient admitted 4 cm, AROM performed and Pitocin augmentation started. She received an epidural and progressed to complete and + 2 station. L&D Stage2 Stage Two Stage II Date: Jan 12, 2021 Monitors and Tracing Monitor Mode: External Heart Rate: 120 Monitor Accelerations: Uniform Monitor Decelerations: Variable Lead Performance Support Analyst Variability: Average (6-10) Short Term Variability: Present Position: Right Occiput Anterior Presentation: Vertex Cord Descript/Complications Cord Vessel Description: 3 Vessels Delivery Type Infant Delivery Method: Spontaneous Vaginal Anterior Shoulder: Left Episiotomy/Perineal Laceration Laceraction(s)/Extensions: Yes Episiotomy Description: Perineal Extension/lac, 2nd degree Degree (describe repair) 2nd degree perineal laceration repaired using 3-0 and 2-0 vicryl suture. Condition of Infant Delivery 1 minute Comment: 8 5 minute Comment: 9 Notes Live male infant weight 9lbs 4 oz Condition of Infant Condition of : Living Exam: No Observed Abnormalities Resuscitation Resuscitation: N/A - Spontaneous Resp L&D Stage3 Stage Three Stage III Date: Jan 12, 2021 Pictocin Pitocin Administration mu/min: 4 Pitocin ml/hr: 4 Pitocin Administration Comment: 30 mu wide open after delivery of placenta Placenta Delivery Placenta Delivery: Spontaneous Delivery Summary Summary Estimated blood loss (mL): 350 Attending at delivery: Sherri Riddle DO Condition of Delivery Examined: Cervix Examined, Uterus Explored Post Hemorrhage: No Condition of Mother stable Condition of (s) stable SHERRI RIDDLE DO Jan 12, 2021 5:25 pm
[2021-01-12] MEDS ORDERED: DIBUCAINE 1% OINTMENT 30 GM TUBE TOP PRN (17:30)
[2021-01-12] MEDS: IBUPROFEN 600 MG (MOTRIN) TAB PO SCH (18:28)
[2021-01-12] MEDS ORDERED: DOCUSATE SODIUM 100 MG (COLACE) CAP PO SCH (21:00)
[2021-01-13 00:27] VITALS: BP 112/59
[2021-01-13] MEDS: DOCUSATE SODIUM 100 MG (COLACE) CAP PO SCH ×2 (00:27→09:03)
[2021-01-13] MEDS: IBUPROFEN 600 MG (MOTRIN) TAB PO SCH ×3 (00:27→14:02)
[2021-01-13 04:46] LABS: BASOPHILS % (AUTO) 0 % (0-10); EOSINOPHILS # (AUTO) 0.1 10^3/uL (0.0-0.3); EOSINOPHILS % (AUTO) 0 % (0-10); HEMATOCRIT 29 % (35-52); HEMOGLOBIN 8.6 g/dL (11.5-16.0); LYMPHOCYTES # (AUTO) 2.6 10^3/uL (1.0-4.0); LYMPHOCYTES % (AUTO) 20 % (12-44); MEAN CORPUSCULAR HEMOGLOBIN 29 pg (25-34); MEAN CORPUSCULAR HGB CONC 30 g/dL (32-36); MEAN CORPUSCULAR VOLUME 94 fL (80-99); MEAN PLATELET VOLUME 10.8 fL (9.0-12.2); MONOCYTES # (AUTO) 0.9 10^3/uL (0.0-1.0); MONOCYTES % (AUTO) 7 % (0-12); NEUTROPHILS # (AUTO) 9.4 10^3/uL (1.8-7.8); NEUTROPHILS % (AUTO) 72 % (42-75); PLATELET COUNT 179 10^3/uL (130-400)
[2021-01-13 06:12] VITALS: BP 103/56
--- NOTE | 2021-01-13 06:51 | Postpartum Progress Note ---
GARFIELD SOTO MED STUDENT 01/13/21 0651: Note Note Day # 1 Subjective: Patient is without complaints. Ambulating, voiding. Tolerating a regular diet without nausea or vomiting. Normal lochia. Pain is well controlled with oral pain medications. Breast feeding. Objective: Vitals: BP 103/56, temp 37, pulse 78, resp 18, O2 99% RA Hgb: 8.6 Physical Exam: General - Alert and oriented, no apparent distress Abdomen - Soft, appropriately tender to palpation, non-distended, fundus firm at umbilicus, normal bowel sounds Extremities - no edema, negative Dario's bilaterally Cardiac: RRR, normal S1 S2 Pulm: clear to auscultation Assessment: Post- day # 1, status post nonspontaneous vaginal delivery. Recovering well, hemodynamically stable, afebrile Acute blood loss anemia Plan: Routine care. Encourage breast feeding. Encourage ambulation. Ferrous sulfate supplementation. Plan for discharge 01/13/2021 Vitals - Labs Vital Signs - I&O Vital Signs Date Time Temp Pulse Resp B/P (MAP) Pulse Ox O2 Delivery O2 Flow Rate FiO2 01/13/21 06:12 37.0 78 18 103/56 (72) 99 Room Air 01/13/21 00:27 36.9 73 18 112/59 (76) 99 Room Air 01/12/21 19:35 36.8 87 18 122/61 (81) 98 Room Air 01/12/21 18:05 107 111/72 (85) Room Air 01/12/21 17:50 86 97/59 (72) 01/12/21 17:35 103 99/50 (66) 01/12/21 17:24 73 99/52 (68) Room Air 01/12/21 16:45 36.9 81 16 104/55 (71) Room Air 01/12/21 15:15 81 156/111 (126) Room Air 01/12/21 15:00 81 156/111 (126) Room Air 01/12/21 14:45 80 112/59 (76) Room Air 01/12/21 14:30 77 119/67 (84) Room Air 01/12/21 14:15 95 121/67 (85) Room Air 01/12/21 14:00 81 126/63 (84) Room Air 01/12/21 13:45 80 116/61 (79) Room Air 01/12/21 13:30 71 111/53 (72) Room Air 01/12/21 13:15 87 119/66 (83) Room Air 01/12/21 13:00 75 121/66 (84) Room Air 01/12/21 12:45 87 16 118/68 (85) Room Air 01/12/21 12:30 87 16 118/68 (85) Room Air 01/12/21 12:15 80 118/67 (84) Room Air 01/12/21 12:00 65 121/61 (81) Room Air 01/12/21 11:45 36.3 69 117/64 (81) Room Air 01/12/21 11:30 68 118/63 (81) Room Air 01/12/21 11:15 79 118/56 (76) Room Air 01/12/21 11:00 86 16 108/58 (75) Room Air 01/12/21 10:45 77 16 108/58 (75) 01/12/21 10:30 01/12/21 10:15 36.3 143/94 (110) 01/12/21 10:00 99 125/63 (83) 100 01/12/21 09:36 95 124/68 (86) 98 Room Air 01/12/21 09:33 90 124/66 (85) 99 01/12/21 09:30 91 143/60 (87) 99 01/12/21 09:26 97 16 121/78 (92) 98 Room Air 01/12/21 09:24 102 123/78 (93) Room Air 01/12/21 09:16 98 130/62 (84) 99 Room Air 01/12/21 09:15 100 142/70 (94) 99 Room Air 01/12/21 09:12 106 135/65 (88) 100 Room Air 01/12/21 09:05 88 16 145/62 (89) 100 Room Air 01/12/21 07:20 37.0 90 16 99 Room Air I & O 01/13/21 07:00 Intake Total 1500 ml Balance 1500 ml Labs Laboratory Tests 01/12/21 07:40: White Blood Count 10.7, Red Blood Count 3.51L, Hemoglobin 9.8L, Hematocrit 32L, Mean Corpuscular Volume 92, Mean Corpuscular Hemoglobin 28, Mean Corpuscular Hemoglobin Concent 30L, Red Cell Distribution Width 15.6H, Platelet Count 181, Mean Platelet Volume 10.6, Immature Granulocyte % (Auto) 1, Neutrophils (%) (Auto) 71, Lymphocytes (%) (Auto) 21, Monocytes (%) (Auto) 6, Eosinophils (%) (Auto) 0, Basophils (%) (Auto) 0, Neutrophils # (Auto) 7.7, Lymphocytes # (Auto) 2.3, Monocytes # (Auto) 0.6, Eosinophils # (Auto) 0.0, Basophils # (Auto) 0.0, Immature Granulocyte # (Auto) 0.1 01/13/21 03:51: White Blood Count 13.0H, Red Blood Count 3.02L, Hemoglobin 8.6L, Hematocrit 29L, Mean Corpuscular Volume 94, Mean Corpuscular Hemoglobin 29, Mean Corpuscular Hemoglobin Concent 30L, Red Cell Distribution Width 15.6H, Platelet Count 179, Mean Platelet Volume 10.8, Immature Granulocyte % (Auto) 1, Neutrophils (%) (Auto) 72, Lymphocytes (%) (Auto) 20, Monocytes (%) (Auto) 7, Eosinophils (%) (Auto) 0, Basophils (%) (Auto) 0, Neutrophils # (Auto) 9.4H, Lymphocytes # (Auto) 2.6, Monocytes # (Auto) 0.9, Eosinophils # (Auto) 0.1, Basophils # (Auto) 0.0, Immature Granulocyte # (Auto) 0.1 NILO RIDDLE DO 01/13/21 0714: Note Note Verification and Attestation of Medical Student E/M Service A medical student performed and documented this service in my presence. I reviewed and verified all information documented by the medical student and made modifications to such information, when appropriate. I personally performed the physical exam and medical decision making. Nilo Riddle Jan 13, 2021,07:13 [employer] STUDENT Jan 13, 2021 06:51 NILO RIDDLE DO Jan 13, 2021 07:14
[2021-01-13] MEDS ORDERED: PRENATAL VITAMIN 1 EA TAB PO SCH (07:00)
[2021-01-13] MEDS ORDERED: DIBU30OI TOP (07:15)
[2021-01-13] MEDS ORDERED: BENZ78AE5 TP (07:15)
[2021-01-13] MEDS ORDERED: FERR325T24 PO (07:15)
[2021-01-13] MEDS ORDERED: IBUP-844 PO (07:15)
[2021-01-13] MEDS ORDERED: DCS100C PO (07:15)
[2021-01-13 09:00] VITALS: BP 120/61
[2021-01-13] MEDS ORDERED: FERROUS SULF 325 MG (IRON) TAB PO SCH (09:00)
[2021-01-13] MEDS: OXYTOCIN PRE-MIX DRIP 500 ML IV SCH ×2 (09:59→10:00)
[2021-01-13 14:00] VITALS: BP 118/65
== END 2021-01-13 17:30 | disposition home or self-care (01) | DRG 806 ==
LOC: LDRP 06:11
PROVIDERS: ADMIT Obstetrics & Gynecology; ATTEND Obstetrics & Gynecology
PROC: 10E0XZZ Delivery of Products of Conception, External Approach (ICD-10-PCS; principal; 2021-01-12)
PROC: 0KQM0ZZ Repair Perineum Muscle, Open Approach (ICD-10-PCS; 2021-01-12)
PROC: 10907ZC Drainage of Amniotic Fluid, Therapeutic from Products of Conception, Via Natural or Artificial Opening (ICD-10-PCS; 2021-01-12)
DX: O99.824 Streptococcus B carrier state complicating childbirth (principal); D62 Acute posthemorrhagic anemia; Z37.0 Single live birth; Z3A.39 39 weeks gestation of pregnancy; O70.1 Second degree perineal laceration during delivery; O90.81 Anemia of the puerperium
CPT/HCPCS: 36415; 83033; 85025; 86850; 86900; 86901